=== PATIENT | male | born 1935 | race Asian ===

== ENCOUNTER 2022-07-18 17:36 | Inpatient (IN) | payer MEDICARE, OTHER ==
[~2022-07-18] VITALS: Ht 160 cm; Wt 56.7 kg
[2022-07-18 18:13] VITALS: BP 116/61
[2022-07-18] MEDS ORDERED: FEBU40TA PO (18:53)
[2022-07-18] MEDS ORDERED: ATOR20TA PO (18:53)
[2022-07-18] MEDS ORDERED: HYDR-4322 PO (18:53)
[2022-07-18] MEDS ORDERED: MULT-594 PO (18:53)
[2022-07-18] MEDS ORDERED: CARV6.252 PO (18:53)
[2022-07-18] MEDS ORDERED: LUTE1CAP5 PO (18:53)
[2022-07-18] MEDS ORDERED: AMLO2.5T4 PO (18:53)
[2022-07-18] MEDS ORDERED: DESM0.2T23 PO (18:53)
[2022-07-18] MEDS ORDERED: LEVO25TA9 PO (18:53)
[2022-07-18] MEDS: LEVOTHYROXINE SODIUM 25 MCG TABLET PO SCH (19:45)
[2022-07-18] MEDS: HYDROCORTISONE 10 MG TABLET PO SCH (19:45)
[2022-07-18] MEDS ORDERED: ONDANSETRON 4 MG/2 ML VIAL IV PRN (19:45)
[2022-07-18] MEDS ORDERED: FEBUXOSTAT 40 MG PO SCH (19:45)
[2022-07-18] MEDS ORDERED: MELATONIN 3 MG TABLET PO PRN (19:45)
[2022-07-18] MEDS ORDERED: ACETAMINOPHEN 650 MG SUPP.RECT RC PRN (19:45)
[2022-07-18] MEDS ORDERED: MAGNESIUM HYDROXIDE 30 ML LIQUID UDC PO PRN (19:45)
[2022-07-18 20:00] VITALS: BP 138/71
[2022-07-18] MEDS ORDERED: IV 1/2NS 1000 ML 1,000 ML IV STA (20:06)
[2022-07-18 20:12] LABS: HEMATOCRIT 39.3 % (36.7-47.1); MEAN CORPUSCULAR HEMOGLOBIN 30.7 uug (23.8-33.4); MEAN CORPUSCULAR VOLUME 92.3 fL (73.0-96.2); PLATELET COUNT (AUTO) 238 K/uL (152-348)
[2022-07-18 20:23] LABS: CARBON DIOXIDE 29 mmol/L (21-32); CHLORIDE 108 mmol/L (98-107); CREATININE 0.9 mg/dL (0.6-1.3); GLUCOSE 96 mg/dL (74-106); POTASSIUM 3.5 mmol/L (3.5-5.1); UREA NITROGEN, BLOOD 21 mg/dL (7-18)
[2022-07-18] MEDS: CARVEDILOL 6.25 MG TABLET PO SCH (20:25)
[2022-07-18] MEDS: ATORVASTATIN 20 MG TABLET PO SCH (20:25)
[2022-07-18 20:32] LABS: MAGNESIUM 2.2 mg/dL (1.8-2.4); PHOSPHOROUS 3.6 mg/dL (2.5-4.9)
[2022-07-19] VITALS: BP 106/56
[2022-07-19 04:00] VITALS: BP 125/68
[2022-07-19] MEDS: LEVOTHYROXINE SODIUM 25 MCG TABLET PO SCH (06:17)
--- NOTE | 2022-07-19 07:30 | NUR ---
RECEIVED PATIENT IN BED AWAKE ALERT AND ORIENTED DENIES PAIN OR DISCOMFORTS AT THIS TIME ON ROOM AIR WITH NO SOB AT THIS TIME.IVF REMAINS IN PROGRESS ORDERED WITH NO S/S OF INFILTERATION ON SITE TELE IS A FIB CALL LIGHTS AND PERSONAL BELONGINGS ARE WITHIN EASY REACH WILL CONTINUE TO OBSERVE
[2022-07-19 08:43] LABS: HEMATOCRIT 41.4 % (36.7-47.1); MEAN CORPUSCULAR HEMOGLOBIN 30.9 uug (23.8-33.4); MEAN CORPUSCULAR VOLUME 92.7 fL (73.0-96.2); PLATELET COUNT (AUTO) 243 K/uL (152-348)
[2022-07-19] MEDS: MULTIVITAMINS,THERAPEUTIC TABLET PO SCH (09:06)
[2022-07-19] MEDS: BETA CAROTENE/VIT C & E/MIN TABLET PO SCH (09:06)
[2022-07-19 09:07] LABS: MAGNESIUM 2.3 mg/dL (1.8-2.4); PHOSPHOROUS 3.4 mg/dL (2.5-4.9); POTASSIUM 3.9 mmol/L (3.5-5.1)
[2022-07-19] MEDS: DESMOPRESSIN 0.1 MG TABLET PO SCH (09:07)
[2022-07-19] MEDS: HYDROCORTISONE 10 MG TABLET PO SCH ×2 (09:07→17:15)
[2022-07-19] MEDS: AMLODIPINE 2.5 MG TABLET PO SCH (09:08)
[2022-07-19] MEDS: CARVEDILOL 6.25 MG TABLET PO SCH ×2 (09:08→21:41)
[2022-07-19 09:23] LABS: THYROID STIMULATING HORMONE 0.915 mIU/mL (0.358-3.740)
[2022-07-19 11:52] VITALS: BP 109/65
[2022-07-19 16:20] VITALS: BP 120/74
[2022-07-19] MEDS ORDERED: HYDROCORTISONE 10 MG TABLET PO SCH (17:00)
--- NOTE | 2022-07-19 17:42 | NUR ---
PATIENT SEEN AND EXAMINED BY DR ROBERTS WITH NEW ORDERS AND NOTED RESTING IN BED DENIES DISCOMFORTS AT THIS TIME.
[2022-07-19] MEDS ORDERED: MELA3TAB41 PO (18:28)
[2022-07-19] MEDS ORDERED: ACET650S13 RC (18:28)
[2022-07-19] MEDS ORDERED: MAGN400O6 PO (18:28)
[2022-07-19] MEDS ORDERED: ONDA4VIA23 PO (18:28)
[2022-07-19] MEDS ORDERED: HYDR10TA PO ×2 (18:28)
--- NOTE | 2022-07-19 18:58 | NUR ---
PER DR ROBERTS D/C PLANNING TO [facility] TOMORROW PENDING PATIENTS ACCEPTANCE STATED WILL CALL .
[2022-07-19 20:00] VITALS: BP 126/68
[2022-07-19] MEDS: ATORVASTATIN 20 MG TABLET PO SCH (21:41)
[2022-07-20 00:19] VITALS: BP 133/73
[2022-07-20 05:28] VITALS: BP 118/76
[2022-07-20] MEDS: LEVOTHYROXINE SODIUM 25 MCG TABLET PO SCH (06:52)
--- NOTE | 2022-07-20 07:05 | NUR ---
Patient awake ,alert, and oriented x4. Denied pain. Slept well. Denied dizziness. No acute distress noted.
[2022-07-20 07:29] LABS: HEMATOCRIT 40.8 % (36.7-47.1); MEAN CORPUSCULAR HEMOGLOBIN 30.7 uug (23.8-33.4); MEAN CORPUSCULAR VOLUME 91.6 fL (73.0-96.2); PLATELET COUNT (AUTO) 235 K/uL (152-348)
[2022-07-20 07:31] LABS: CREATININE 0.9 mg/dL (0.6-1.3); MAGNESIUM 2.4 mg/dL (1.8-2.4); PHOSPHOROUS 3.6 mg/dL (2.5-4.9); POTASSIUM 3.9 mmol/L (3.5-5.1)
[2022-07-20] MEDS: MULTIVITAMINS,THERAPEUTIC TABLET PO SCH (08:29)
[2022-07-20] MEDS: CARVEDILOL 6.25 MG TABLET PO SCH ×2 (08:30→20:54)
[2022-07-20] MEDS: AMLODIPINE 2.5 MG TABLET PO SCH (08:30)
[2022-07-20] MEDS: BETA CAROTENE/VIT C & E/MIN TABLET PO SCH (08:30)
[2022-07-20] MEDS: HYDROCORTISONE 10 MG TABLET PO SCH ×2 (08:33→17:22)
[2022-07-20] MEDS: DESMOPRESSIN 0.1 MG TABLET PO SCH (08:33)
--- NOTE | 2022-07-20 09:59 | NUR ---
Rcvd pt. sitting on the bed. Pt comfortable, no SOB. Denies any chest pain, dizziness and head. AAO x4. Routine PO meds taken and tolerated well.
--- NOTE | 2022-07-20 10:09 | NUR ---
CALL RECEIVED FROM DR JON CARDENAS WANTS TO TALK TO THE PATIENTS RE DISCHARGE AND HE ALSO WANTS PHYSICAL THERAPY TO SEE THE PATIENT MEE PATIENT WILL BE DISCHARGED TODAY.PATIENTS [employer] PHONE NUMBER GIVEN TO DR WEBB
--- NOTE | 2022-07-20 11:54 | NUR ---
PATIENT SEEN BY THE PHYSICAL THERAPIST FOR THERAPEUTIC EXERCISES ENDURANCE IS FAIR BUT PATIENT IS ORTHOSTATIC WITH BLOOD PRESSURE STARTING AT 126/62 AND WHILE STANDING IT WAS 106/68 THEN FEW SECONDS LATER IT WAS 94/61 TO 84/43 AND PATIENT IS ASSYMPTOMATIC BACK INTO BED AND SYSTOLIC UP TO 130/63.DENIES FEELING DIZZY NOT IN DISTRESS AT THIS TIME.
[2022-07-20 12:03] VITALS: BP_SYST 106; BP_SYST 126; BP_SYST 139; BP_DIAS 52; BP_DIAS 62; BP_DIAS 68
[2022-07-20 12:28] VITALS: BP 143/71
--- NOTE | 2022-07-20 16:00 | NUR ---
PER [employer] PATIENT WILL BE DISCHARGED TOMORROW INSTEAD AND NOTED
[2022-07-20 16:07] VITALS: BP 124/68
--- NOTE | 2022-07-20 18:00 | NUR ---
PATIENTS IS AT THE BEDSIDE RESTING NO C/O NOTED AT THIS TIME.
--- NOTE | 2022-07-20 19:30 | NUR ---
Received patient lying. [id number]. In no acute distress. Denies any pain or SOB. IV site on left AC intact and patent. Needs assessed and attended to. Safety measure initiated and call light within reached.
[2022-07-20 20:00] VITALS: BP 133/71
[2022-07-20] MEDS: ATORVASTATIN 20 MG TABLET PO SCH (20:53)
[2022-07-21 04:54] VITALS: BP 105/65
--- NOTE | 2022-07-21 05:35 | NUR ---
Slept well during the night. Denies any pain or SOB. Needs attended to and met. Stand by assist to toilet PRN. Safety measure maintained and call light within reached.
[2022-07-21] MEDS: LEVOTHYROXINE SODIUM 25 MCG TABLET PO SCH (06:02)
[2022-07-21] MEDS: MULTIVITAMINS,THERAPEUTIC TABLET PO SCH (08:02)
[2022-07-21] MEDS: BETA CAROTENE/VIT C & E/MIN TABLET PO SCH (08:02)
[2022-07-21] MEDS: AMLODIPINE 2.5 MG TABLET PO SCH (08:02)
[2022-07-21] MEDS: CARVEDILOL 6.25 MG TABLET PO SCH (08:03)
[2022-07-21] MEDS: DESMOPRESSIN 0.1 MG TABLET PO SCH (08:03)
[2022-07-21] MEDS: HYDROCORTISONE 10 MG TABLET PO SCH (08:03)
--- NOTE | 2022-07-21 09:00 | NUR ---
D/C PLANNING PATIENT WILL BE PICKED UP BY AMBULANCE FOR DISCHARGE AT 1100 TO [facility].PATIENT AND HIS KAMINI MATTHEWS.
--- NOTE | 2022-07-21 11:02 | NUR ---
CALLED [facility] AND REPORT GIVEN TO POOJA FOR CONTINUING CARE.
[2022-07-21 11:22] VITALS: BP 113/59
--- NOTE | 2022-07-21 11:33 | NUR ---
PATIENT DISCHARGED PICKED UP BY [facility] IN SATISFACTORY CONDITION WITH DISCHARGE INSTRUCTIONS AND ALL HIS PERSONAL BELONGINGS. KAMINI HERE AND PRESENT
== END 2022-07-21 11:33 | DRG 641 ==
LOC: TELE 17:50 → TELE3 07-19 05:47 → MEDSURG3 07-20 09:43
PROVIDERS: ADMIT Internal Medicine; ATTEND Internal Medicine
DX: E86.0 Dehydration (principal); E23.0 Hypopituitarism; I48.20 Chronic atrial fibrillation, unspecified; I95.1 Orthostatic hypotension; E03.9 Hypothyroidism, unspecified; I10 Essential (primary) hypertension; Z85.858 Personal history of malignant neoplasm of other endocrine glands; E78.5 Hyperlipidemia, unspecified; Z98.890 Other specified postprocedural states; Z20.822 Contact with and (suspected) exposure to COVID-19; Z85.841 Personal history of malignant neoplasm of brain
CPT/HCPCS: 36415; 83550; 83605; 83735; 84100; 84443; 84484; 85025; 93005; 93307; 93880; A4663; G0378